=== PATIENT | female | born 1985 | race Caucasian/White ===

== ENCOUNTER → 2020-12-21 08:52 | Outpatient (CLI) | payer OTHER, SELFPAY ==
[2020-12-21 09:13] LABS: Absolute Lymphocyte Count 2.29 X10^3/uL (0.83-4.51); Basophil# 0.05 X10^3/uL; Basophil% 0.8 % (0-1); Eosinophil# 0.28 X10^3/uL; Eosinophils% 4.4 % (0-5); Hematocrit 46.6 % (37-47); Hemoglobin 15.1 g/dL (12.0-15.0); Lymphocyte # 2.29 X10^3/ul (0.83-4.51); Lymphocyte % 36.3 % (19-41); Mean Corp Hgb Conc 32.4 g/dL (32-36); Mean Corpuscular Hgb 29.5 pg (27.0-32.0); Mean Corpuscular Volume 91.2 fL (81-99); Mean Platelet Vol. 10.2 fl (6.2-12.0); Monocyte# 0.63 X10^3/uL; NRBC Flagged by Analyzer 0 % (0-5); Neutrophil # 3.03 X10^3/uL (2.7-7.7); Neutrophil % 48.2 % (47-70); Platelet Count 226 K/mm3 (150-450); RBC Distribution Width CV 11.9 % (11.6-14.6); RBC Distribution Width SD 40.1 fl (35.1-43.9); Red Blood Count 5.11 M/mm3 (4.2-5.4); White Blood Count 6.3 K/mm3 (4.4-11.0)
[2020-12-21 09:38] LABS: ALB/GLOB Ratio 1.1 RATIO (0.9-2.4); AST(SGOT) 16 U/L (15-37); Alanine Aminotransfer ALT/SGPT 28 U/L (13-56); Albumin, Serum 3.9 g/dL (3.2-5.0); Alkaline Phosphatase 51 U/L (45-117); Anion Gap 5 (5-15); BUN 13 mg/dL (7-18); BUN/Creat Ratio 14.7 RATIO (10-20); Chloride 106 mmol/L (98-107); Creatinine, Serum 0.89 mg/dL (0.55-1.02); EST Glomerular Filtration Rate 76 mL/min (>60); Est Glom Filt Rate - Afr Amer 92 mL/min (>60); Ferritin 132 ng/mL (8-252); Globulin 3.7 g/dL (2.2-4.2); Glucose 92 mg/dL (74-106); Potassium 4.2 mmol/L (3.5-5.1); Protein, Total 7.6 g/dL (6.4-8.2); Sodium Level 139 mmol/L (136-145); Thyroid Stim Hormone (TSH) 2.38 uIU/mL (0.358-3.74)
== END ==
DX: L67.8 Other hair color and hair shaft abnormalities (principal); R21 Rash and other nonspecific skin eruption; R53.82 Chronic fatigue, unspecified
CPT/HCPCS: 36415; 80053; 82728; 84443; 85025

== ENCOUNTER → 2021-01-02 09:00 | Outpatient (CLI) | payer OTHER, SELFPAY ==
[2021-01-02 10:39] LABS: Erythrocyte Sedimentation Rate 8 mm/hr (0-30)
[2021-01-02 11:03] LABS: Vitamin B12 295 pg/mL (211-911)
[2021-01-02 11:13] LABS: Iron 108 ug/dL (50-170); Iron Binding Capacity,Total 356 ug/dL (250-450); PERCENT IRON SATURATION 30.3 % (15.0-55.0); T4 Free Direct 0.77 ng/dL (0.76-1.46)
[2021-01-05 11:16] LABS: Beef <0.10 kU/L (Class 0); Chocolate <0.10 kU/L (Class 0); Corn <0.10 kU/L (Class 0); Egg, Whole <0.10 kU/L (Class 0); Milk (Cow) <0.10 kU/L (Class 0); Peanut <0.10 kU/L (Class 0); Soybean <0.10 kU/L (Class 0); Vitamin D 1,25-Dihydroxy 57.5 pg/mL (19.9-79.3); Wheat <0.10 kU/L (Class 0)
[2021-01-05 11:25] LABS: ANTINUCLEAR ANTIBODIES DIRECT Negative (Negative)
[2021-01-07 12:04] LABS: Thyroid Peroxidase AB 12 IU/mL (0-34); Zinc, Plasma or Serum 87 ug/dL (44-115)
== END ==
PROVIDERS: Referring Provider Nurse Practitioner Adult Health; Visit Provider Nurse Practitioner Adult Health
DX: R53.83 Other fatigue (principal)
CPT/HCPCS: 36415; 82607; 82652; 82746; 83036; 83540; 83550; 84439; 84630; 85652; 86003; 86005; 86038; 86376; 87177; 87209